=== PATIENT | female | born 1985 | race Caucasian/White ===

== ENCOUNTER 2018-03-25 13:04 | Inpatient (IN) | payer OTHER ==
[~2018-03-25] VITALS: Ht 157.5 cm; Wt 94.9 kg
--- NOTE | ~2018-03-25 | O ---
[place], [place] OPERATIVE NOTE NAME: CHARLES PEDRO UNIT #: [id number] ROOM: 424 DOCTOR: MADDIE SALCEDO MD BIRTHDATE: [birth year] DOS: 03/30/2018 HISTORY OF PRESENT ILLNESS: The patient has presented with a chief complaint of epigastric abdominal pain, abnormal liver function test, undergoing investigation. The patient initially was thought to have possible obstructive lesion at the distal common duct initially and an MRI was performed and duct was free of obvious stricture. Mild dilation of the common duct appeared to be postoperative cholecystectomy a decade and half ago. PAST MEDICAL HISTORY: Anxiety, hypertension, and obesity. PAST SURGICAL HISTORY: Cholecystectomy. SOCIAL HISTORY: Nonsmoker; however, alcohol and drug utilization in the past and history of hepatitis C positivity. ALLERGIES: No known medication. MEDICATIONS: At home has been reviewed. PROCEDURE: Today's procedure part of investigation is panendoscopy plus biopsy. PREMEDICATION: Versed and propofol. SCOPE: Olympus forward-viewing gastroscope Q10 video. REPORT: After putting the patient in left lateral position and application of lubricant to the scope, the scope was introduced. Thereafter, under direct visualization, advanced through the length of esophagus, hiatal hernia was noticed. Gastric pouch was entered. Multiple antral ulcerations identified. Biopsy from margin of the ulcer was obtained. Duodenal bulb, second and third part consistent with duodenitis. The patient extubated, tolerated the procedure well. IMPRESSION: Gastric ulceration, hiatal hernia, gastritis and duodenitis. PLAN AND DISCUSSION: Protonix 40 mg daily and follow up as outpatient. We are going to repeat LFTs. I am expecting SGOT/SGPT to remain elevated because of hepatitis C history. Thank you very much indeed. [place], [place] OPERATIVE NOTE NAME: CHARLES PEDRO UNIT #: [id number] ROOM: 424 DOCTOR: MADDIE SALCEDO MD BIRTHDATE: [birth year] MADDIE SALCEDO MD CM:OPRECORD:OPERATIVE NOTE [id number] MADDIE SALCEDO MD 03/30/18 1758 interface
[2018-03-25 13:06] VITALS: BP 104/57
[2018-03-25 13:40] LABS: BASO % 0.4 % (0.0-1.0); EOS # 0.1 10*3/uL (0.0-0.4); EOS % 1.2 % (1.0-4.0); HEMATOCRIT 37.5 % (37.0-47.0); HEMOGLOBIN 12.4 g/dl (12.0-16.0); LYMPH # 2.4 10*3/uL (1.3-4.4); LYMPH % 27.8 % (27.0-41.0); MEAN CELL VOLUME 84.7 fl (81.0-99.0); MEAN CORPUSCULAR HGB CONC 33.1 g/dl (33.0-37.0); MEAN PLATELET VOLUME 9.6 fl (9.6-12.3); MONO % 11.7 % (3.0-9.0); NEUT % 58.7 % (47.0-73.0); PLATELET COUNT AUTOMATED 289 10*3/uL (130-400); RED BLOOD COUNT 4.43 10*6/uL (4.10-5.10); RED CELL DISTRI WIDTH 16.1 % (0-14.5); WHITE BLOOD COUNT 8.6 10*3/uL (4.8-10.8)
[2018-03-25 13:56] LABS: ALBUMIN 4.1 gm/dl (3.1-4.5); ALKALINE PHOSPHATASE 75 U/L (45-117); BUN 17 mg/dl (7-24); CHLORIDE 106 mmol/L (98-107); POTASSIUM 3.4 mmol/L (3.5-5.1); SGOT/AST 85 IU/L (3-35); SGPT/ALT 124 U/L (12-78); SODIUM 141 mmol/L (136-145); TOTAL PROTEIN 7.7 gm/dL (6.4-8.2)
[2018-03-25 14:00] LABS: ETHYL ALCOHOL < 3.0 mg/dl (<3)
[2018-03-25 14:04] LABS: THYROID STIM HORMONE (HS) 0.814 uIU/ml (0.358-4.75)
[2018-03-25 15:11] LABS: BILIRUBIN NEGATIVE (NEGATIVE); BLOOD 3+ (NEGATIVE); CLARITY CLOUDY (CLEAR); COLOR RED (YELLOW); GLUCOSE NEGATIVE (NEGATIVE); KETONE 1+ (NEGATIVE); NITRITE POSITIVE (NEGATIVE); PH 5.5 (5.0-9.0); SPECIFIC GRAVITY >= 1.030 (1.005-1.030)
[2018-03-25 15:20] LABS: LEUKO ESTERASE TRACE (NEGATIVE)
[2018-03-25 15:22] LABS: RBC TNTC rbc/hpf (0-2)
[2018-03-25 15:29] LABS: URINE AMPHETAMINES > 1000 (1000ng/ml); URINE BARBITURATES < 200 (200ng/ml); URINE BENZODIAZEPINES < 200 (200ng/ml); URINE CANNABINOIDS (THC) > 50 (50ng/ml); URINE COCAINE < 300 (300ng/ml); URINE METHADONE < 300 (300ng/ml); URINE OPIATES < 300 (300ng/ml)
[2018-03-25 15:37] LABS: URINE PHENCYCLIDINE < 25 (25ng/ml)
[2018-03-25 16:36] VITALS: BP 140/57
[2018-03-25 17:00] VITALS: BP 122/82
[2018-03-25] MEDS ORDERED: LOPRESSOR100 M1 PO (17:32)
[2018-03-25] MEDS ORDERED: BUSPIRONE HCL30 MG PO (17:35)
[2018-03-25] MEDS ORDERED: BUSPIRONE30 MG PO (17:38)
[2018-03-25] MEDS ORDERED: EFFEXOR-XR150 MG PO (17:39)
[2018-03-25] MEDS ORDERED: LIPITOR40 MG PO (17:40)
[2018-03-25 20:00] VITALS: BP 124/80
[2018-03-26] VITALS: BP 124/86
[2018-03-26 06:17] LABS: BASO % 0.4 % (0.0-1.0); EOS # 0.2 10*3/uL (0.0-0.4); EOS % 4.2 % (1.0-4.0); HEMATOCRIT 36.3 % (37.0-47.0); HEMOGLOBIN 11.8 g/dl (12.0-16.0); LYMPH # 2.1 10*3/uL (1.3-4.4); LYMPH % 45.4 % (27.0-41.0); MEAN CELL VOLUME 86.4 fl (81.0-99.0); MEAN CORPUSCULAR HGB 28.1 pg (27.0-31.0); MEAN CORPUSCULAR HGB CONC 32.5 g/dl (33.0-37.0); MEAN PLATELET VOLUME 9.9 fl (9.6-12.3); MONO # 0.5 10*3/uL (0.1-1.0); MONO % 11.7 % (3.0-9.0); NEUT # 1.7 10*3/uL (2.3-7.9); NEUT % 38.3 % (47.0-73.0); PLATELET COUNT AUTOMATED 250 10*3/uL (130-400); RED CELL DISTRI WIDTH 16.6 % (0-14.5); WHITE BLOOD COUNT 4.5 10*3/uL (4.8-10.8)
[2018-03-26 06:39] LABS: ALBUMIN 3.5 gm/dl (3.1-4.5); BUN 13 mg/dl (7-24); CHLORIDE 110 mmol/L (98-107); CREATININE 0.64 mg/dL (0.55-1.02); PHOSPHOROUS 2.9 mg/dL (2.5-4.9); POTASSIUM 3.4 mmol/L (3.5-5.1); SGOT/AST 98 IU/L (3-35); SGPT/ALT 123 U/L (12-78); SODIUM 144 mmol/L (136-145)
[2018-03-26 06:42] LABS: ALKALINE PHOSPHATASE 61 U/L (45-117); TOTAL PROTEIN 6.6 gm/dL (6.4-8.2)
[2018-03-26 06:51] LABS: ACT PARTIAL THROMBO TIME 25.4 SECONDS (20.8-31.5)
[2018-03-26 08:00] VITALS: BP 118/66
[2018-03-26 12:00] VITALS: BP 128/76
[2018-03-26 16:00] VITALS: BP 116/63
[2018-03-26 20:00] VITALS: BP 125/80
[2018-03-27] VITALS: BP 126/70
[2018-03-27 07:40] LABS: BASO % 0.5 % (0.0-1.0); EOS # 0.2 10*3/uL (0.0-0.4); EOS % 4.5 % (1.0-4.0); HEMATOCRIT 37.9 % (37.0-47.0); HEMOGLOBIN 12.1 g/dl (12.0-16.0); LYMPH # 1.6 10*3/uL (1.3-4.4); LYMPH % 39.4 % (27.0-41.0); MEAN CELL VOLUME 86.9 fl (81.0-99.0); MEAN CORPUSCULAR HGB 27.8 pg (27.0-31.0); MEAN CORPUSCULAR HGB CONC 31.9 g/dl (33.0-37.0); MEAN PLATELET VOLUME 10.1 fl (9.6-12.3); MONO # 0.5 10*3/uL (0.1-1.0); MONO % 12.1 % (3.0-9.0); NEUT # 1.8 10*3/uL (2.3-7.9); NEUT % 43.3 % (47.0-73.0); PLATELET COUNT AUTOMATED 274 10*3/uL (130-400); RED BLOOD COUNT 4.36 10*6/uL (4.10-5.10)
[2018-03-27 08:00] VITALS: BP 120/64; BP 122/70
[2018-03-27 08:09] LABS: ALBUMIN 3.3 gm/dl (3.1-4.5); BUN 10 mg/dl (7-24); CHLORIDE 105 mmol/L (98-107); CREATININE 0.69 mg/dL (0.55-1.02); POTASSIUM 3.1 mmol/L (3.5-5.1); SGOT/AST 72 IU/L (3-35); SGPT/ALT 113 U/L (12-78); SODIUM 144 mmol/L (136-145); TOTAL PROTEIN 6.6 gm/dL (6.4-8.2)
[2018-03-27 08:10] LABS: ALKALINE PHOSPHATASE 63 U/L (45-117)
[2018-03-27 12:00] VITALS: BP 115/67
[2018-03-27 16:00] VITALS: BP 131/96
[2018-03-27 20:00] VITALS: BP 114/62
[2018-03-28] VITALS: BP 116/67
[2018-03-28 06:14] LABS: HEPATITIS B SURFACE AG Negative (Negative)
[2018-03-28 07:05] LABS: HIV 1+2 AB + HIV1 P24 AG Non Reactive (Non Reactive)
[2018-03-28 07:38] LABS: HEPATITIS C VIRUS ANTIBODY >11.0 s/co (0.0-0.9)
[2018-03-28 07:46] LABS: BASO % 0.3 % (0.0-1.0); EOS # 0.2 10*3/uL (0.0-0.4); HEMATOCRIT 39.4 % (37.0-47.0); HEMOGLOBIN 12.8 g/dl (12.0-16.0); LYMPH # 1.4 10*3/uL (1.3-4.4); MEAN CELL VOLUME 85.8 fl (81.0-99.0); MEAN CORPUSCULAR HGB 27.9 pg (27.0-31.0); MEAN CORPUSCULAR HGB CONC 32.5 g/dl (33.0-37.0); MEAN PLATELET VOLUME 9.8 fl (9.6-12.3); MONO # 0.3 10*3/uL (0.1-1.0); MONO % 9.9 % (3.0-9.0); NEUT # 1.5 10*3/uL (2.3-7.9); NEUT % 42.5 % (47.0-73.0); PLATELET COUNT AUTOMATED 300 10*3/uL (130-400); RED BLOOD COUNT 4.59 10*6/uL (4.10-5.10); RED CELL DISTRI WIDTH 17.1 % (0-14.5); WHITE BLOOD COUNT 3.4 10*3/uL (4.8-10.8)
[2018-03-28 08:00] VITALS: BP 120/68
[2018-03-28 08:14] LABS: BUN 12 mg/dl (7-24); CHLORIDE 103 mmol/L (98-107); POTASSIUM 3.3 mmol/L (3.5-5.1); SODIUM 141 mmol/L (136-145)
[2018-03-28 08:20] LABS: ALBUMIN 3.4 gm/dl (3.1-4.5); ALKALINE PHOSPHATASE 66 U/L (45-117); CREATININE 0.78 mg/dL (0.55-1.02); PHOSPHOROUS 3.6 mg/dL (2.5-4.9); SGOT/AST 64 IU/L (3-35); SGPT/ALT 112 U/L (12-78); TOTAL PROTEIN 7.1 gm/dL (6.4-8.2)
[2018-03-28 12:00] VITALS: BP 132/86
[2018-03-28 16:00] VITALS: BP 136/88
[2018-03-28 20:00] VITALS: BP 130/79
[2018-03-29] VITALS: BP 126/77
[2018-03-29 06:54] LABS: BASO % 0.5 % (0.0-1.0); EOS # 0.2 10*3/uL (0.0-0.4); EOS % 5.6 % (1.0-4.0); HEMATOCRIT 39.9 % (37.0-47.0); HEMOGLOBIN 12.9 g/dl (12.0-16.0); LYMPH # 1.8 10*3/uL (1.3-4.4); LYMPH % 45.5 % (27.0-41.0); MEAN CELL VOLUME 86.9 fl (81.0-99.0); MEAN CORPUSCULAR HGB 28.1 pg (27.0-31.0); MEAN CORPUSCULAR HGB CONC 32.3 g/dl (33.0-37.0); MEAN PLATELET VOLUME 9.6 fl (9.6-12.3); MONO # 0.4 10*3/uL (0.1-1.0); MONO % 9.6 % (3.0-9.0); NEUT # 1.5 10*3/uL (2.3-7.9); NEUT % 38.5 % (47.0-73.0); PLATELET COUNT AUTOMATED 290 10*3/uL (130-400); RED BLOOD COUNT 4.59 10*6/uL (4.10-5.10); RED CELL DISTRI WIDTH 17.1 % (0-14.5)
[2018-03-29 07:26] LABS: ALBUMIN 3.5 gm/dl (3.1-4.5); BUN 11 mg/dl (7-24); CHLORIDE 105 mmol/L (98-107); POTASSIUM 3.8 mmol/L (3.5-5.1); SODIUM 141 mmol/L (136-145)
[2018-03-29 07:29] LABS: ALKALINE PHOSPHATASE 64 U/L (45-117); CREATININE 0.75 mg/dL (0.55-1.02); SGOT/AST 58 IU/L (3-35); SGPT/ALT 102 U/L (12-78); TOTAL PROTEIN 6.9 gm/dL (6.4-8.2)
[2018-03-29 08:00] VITALS: BP 121/68
[2018-03-29 16:00] VITALS: BP 129/80
[2018-03-29 20:00] VITALS: BP 102/52
[2018-03-30] VITALS (9 sets, daily range): BP systolic 106–135; BP diastolic 64–93
[2018-03-30 07:43] LABS: BASO % 0.4 % (0.0-1.0); EOS # 0.2 10*3/uL (0.0-0.4); HEMATOCRIT 40.8 % (37.0-47.0); HEMOGLOBIN 13.3 g/dl (12.0-16.0); LYMPH # 1.9 10*3/uL (1.3-4.4); LYMPH % 40.9 % (27.0-41.0); MEAN CELL VOLUME 86.1 fl (81.0-99.0); MEAN CORPUSCULAR HGB 28.1 pg (27.0-31.0); MEAN CORPUSCULAR HGB CONC 32.6 g/dl (33.0-37.0); MEAN PLATELET VOLUME 9.7 fl (9.6-12.3); MONO # 0.4 10*3/uL (0.1-1.0); NEUT # 2.1 10*3/uL (2.3-7.9); NEUT % 45.5 % (47.0-73.0); PLATELET COUNT AUTOMATED 329 10*3/uL (130-400); RED BLOOD COUNT 4.74 10*6/uL (4.10-5.10); RED CELL DISTRI WIDTH 16.8 % (0-14.5); WHITE BLOOD COUNT 4.6 10*3/uL (4.8-10.8)
[2018-03-30 08:02] LABS: ALBUMIN 3.7 gm/dl (3.1-4.5); ALKALINE PHOSPHATASE 70 U/L (45-117); BUN 13 mg/dl (7-24); CHLORIDE 107 mmol/L (98-107); CREATININE 0.78 mg/dL (0.55-1.02); POTASSIUM 4.1 mmol/L (3.5-5.1); SGOT/AST 61 IU/L (3-35); SGPT/ALT 104 U/L (12-78); SODIUM 138 mmol/L (136-145); TOTAL PROTEIN 7.7 gm/dL (6.4-8.2)
[2018-03-31] VITALS: BP 121/84
[2018-03-31 06:16] LABS: BASO % 0.4 % (0.0-1.0); EOS # 0.2 10*3/uL (0.0-0.4); EOS % 4.9 % (1.0-4.0); HEMATOCRIT 40.1 % (37.0-47.0); LYMPH # 1.7 10*3/uL (1.3-4.4); MEAN CELL VOLUME 86.4 fl (81.0-99.0); MEAN CORPUSCULAR HGB CONC 32.4 g/dl (33.0-37.0); MEAN PLATELET VOLUME 9.8 fl (9.6-12.3); MONO # 0.4 10*3/uL (0.1-1.0); MONO % 8.7 % (3.0-9.0); NEUT # 2.1 10*3/uL (2.3-7.9); NEUT % 46.8 % (47.0-73.0); PLATELET COUNT AUTOMATED 294 10*3/uL (130-400); RED BLOOD COUNT 4.64 10*6/uL (4.10-5.10); RED CELL DISTRI WIDTH 16.8 % (0-14.5); WHITE BLOOD COUNT 4.5 10*3/uL (4.8-10.8)
[2018-03-31 06:38] LABS: ALBUMIN 3.4 gm/dl (3.1-4.5); BUN 14 mg/dl (7-24); CHLORIDE 106 mmol/L (98-107); CREATININE 0.77 mg/dL (0.55-1.02); POTASSIUM 4.3 mmol/L (3.5-5.1); SGOT/AST 67 IU/L (3-35); SGPT/ALT 106 U/L (12-78); SODIUM 139 mmol/L (136-145)
[2018-03-31 06:41] LABS: ALKALINE PHOSPHATASE 73 U/L (45-117); PHOSPHOROUS 3.5 mg/dL (2.5-4.9); TOTAL PROTEIN 7.3 gm/dL (6.4-8.2)
[2018-03-31 08:00] VITALS: BP 114/69
[2018-03-31] MEDS ORDERED: FAMOTIDINE20 M1 PO (11:04)
[2018-03-31] MEDS ORDERED: PANTOPRAZOLE SO40 MG PO (11:04)
[2018-03-31] MEDS ORDERED: Flonase 0.05% 120 Me NAS (11:04)
== END 2018-03-31 12:50 | disposition home or self-care (01) | DRG 917 ==
LOC: ED 13:04 → 4E 16:01 → EDHOLD 16:01 → 4E 16:16
PROVIDERS: Emergency Medicine; Internal Medicine
PROC: 0DB68ZX Excision of Stomach, Via Natural or Artificial Opening Endoscopic, Diagnostic (ICD-10-PCS; principal; 2018-03-25)
DX: T43.621A Poisoning by amphetamines, accidental (unintentional), initial encounter (principal); G93.41 Metabolic encephalopathy; K80.50 Calculus of bile duct without cholangitis or cholecystitis without obstruction; I11.9 Hypertensive heart disease without heart failure; K76.0 Fatty (change of) liver, not elsewhere classified; F15.951 Other stimulant use, unspecified with stimulant-induced psychotic disorder with hallucinations; N39.0 Urinary tract infection, site not specified; E66.9 Obesity, unspecified; F12.10 Cannabis abuse, uncomplicated; J02.9 Acute pharyngitis, unspecified; R74.0 Nonspecific elevation of levels of transaminase and lactic acid dehydrogenase [LDH]; E86.0 Dehydration; E87.6 Hypokalemia; R80.9 Proteinuria, unspecified; R82.4 Acetonuria; R31.29 Other microscopic hematuria; I95.1 Orthostatic hypotension; K25.9 Gastric ulcer, unspecified as acute or chronic, without hemorrhage or perforation; K44.9 Diaphragmatic hernia without obstruction or gangrene; K29.80 Duodenitis without bleeding; F41.9 Anxiety disorder, unspecified; R41.0 Disorientation, unspecified; E78.5 Hyperlipidemia, unspecified; K83.8 Other specified diseases of biliary tract; F19.10 Other psychoactive substance abuse, uncomplicated; E55.9 Vitamin D deficiency, unspecified; Z90.49 Acquired absence of other specified parts of digestive tract; Z79.899 Other long term (current) drug therapy; Y92.89 Other specified places as the place of occurrence of the external cause; Z68.38 Body mass index [BMI] 38.0-38.9, adult